=== PATIENT | female | born 1950 | race Caucasian/White ===

== ENCOUNTER → 2018-04-25 | Outpatient (CLI) | payer MEDICARE, OTHER ==
--- NOTE | 2018-04-25 16:21 | CARD ---
MR#: [id number] Date of Study: 04/25/2018 Ordering Physician: CORDELIA BRANDT, Referring Physician: CORDELIA BRANDT Tech: Florinda Clark RDCS APPROVED REPORT EXAM: Two-dimensional and M-mode echocardiogram with Doppler and color Doppler. Other Information Quality : Technically LimitedHR: 79bpm Rhythm : NSRTechnically limited study due to body habitus. INDICATION CAD 2D DIMENSIONS RVDd2.9 (2.9-3.5cm)Left Atrium(2D)3.3 (1.6-4.0cm) IVSd1.0 (0.7-1.1cm)Aortic Root(2D)3.2 (2.0-3.7cm) LVDd5.0 (3.9-5.9cm)LVOT Diameter2.2 (1.8-2.4cm) PWd0.9 (0.7-1.1cm)LVDs3.2 (2.5-4.0cm) FS (%) 35.6 %SV76.5 ml LVEF(%)60.0 (>50%) M-Mode DIMENSIONS Left Atrium(MM)3.82 (2.5-4.0cm)Aortic Root3.43 (2.2-3.7cm) Aortic Valve AoV Peak Cesar.126.0cm/sAoV VTI26.2cm AO Peak GR.6.3mmHgLVOT Peak Cesar.77.2cm/s LVOT VTI 19.39cmAO Mean GR.3mmHg DAVID (VMAX)2.49nu6WSC (VTI)2.77cm2 Mitral Valve MV E Gnuvvuwp36.2cm/sMV DECEL [id number] MV A Fdshbvgi07.7cm/sE/A Ratio0.7 MV A [id number] Pulmonary Valve PV Peak Angymeef25.7cm/sPV Peak Grad.3mmHg Tricuspid Valve TR P. Ppbmyqjb986sc/sRAP OXNPXKWW4gpOs TR Peak Gr.02xsZySPXR20yhGx LEFT VENTRICLE The left ventricle is normal size. There is normal left ventricular wall thickness. Basal inferior an d inferoseptal wall hypokinesis. The Ejection Fraction is 55%. Transmitral Doppler flow pattern is Gr jean I-abnormal relaxation pattern. RIGHT VENTRICLE The right ventricle is normal size. There is normal right ventricular wall thickness. The right ventr icular systolic function is normal. ATRIA The left atrium size is normal. The right atrium size is normal. The interatrial septum is intact wit h no evidence for an atrial septal defect or patent foramen ovale as noted on 2-D or Doppler imaging. AORTIC VALVE The aortic valve is normal in structure and function. The aortic valve is trileaflet. Doppler and Col or Flow revealed no significant aortic regurgitation. There is no significant aortic valvular stenosi s. MITRAL VALVE The mitral valve is normal in structure and function. There is no evidence of mitral valve prolapse. There is no mitral valve stenosis. Doppler and Color-flow revealed trace mitral regurgitation. TRICUSPID VALVE The tricuspid valve is normal in structure and function. Doppler and Color Flow revealed trace tricus pid regurgitation. The PA pressure was estimated at 20 mmHg. There is no tricuspid valve prolapse or vegetation. There is no tricuspid valve stenosis. PULMONIC VALVE Pulmonic valve not well visualized. GREAT VESSELS The aortic root is normal in size. The ascending aorta is normal in size. The IVC is normal in size a nd collapses >50% with inspiration. PERICARDIAL EFFUSION There is no evidence of significant pericardial effusion. Critical Notification Critical Value: No <Conclusion> Basal inferior and inferoseptal wall hypokinesis. The Ejection Fraction is 55%. Transmitral Doppler flow pattern is Grade I-abnormal relaxation pattern. Trace mitral regurgitation. Trace tricuspid regurgitation. The PA pressure was estimated at 20 mmHg. There is no evidence of significant pericardial effusion. Signed by : Cordelia Brandt, Electronically Approved : 04/25/2018 16:21:12
--- NOTE | 2018-04-28 16:08 | RAD ---
MR#: [id number] Date of Study: 04/25/2018 Ordering Physician: CORDELIA LEI, Referring Physician: CORDELIA LEI, Tech: Rossi Berkowitz RDMS, RVT, RTR APPROVED REPORT Patient Location: IN-PATIENT Indications AAA Grayscale images of the abdominal aorta reveals a aneurysm located approximately 3.4 cm from the supe rior mesenteric artery. The aneurysm measures approximately 4.8 cm in maximum mention in the mid abdo petey aorta. The iliac arteries do not appear to be involved. No significant velocity acceleration or deceleration is noted. Critical Notification Critical Value: No <Conclusion> 1. 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 Signed by : Alistair Kent, Electronically Approved : 04/28/2018 16:08:02
== END | disposition home or self-care (01) ==
LOC: ECHO 07:28
PROVIDERS: ATTEND Internal Medicine Cardiovascular Disease
DX: I25.10 Atherosclerotic heart disease of native coronary artery without angina pectoris (principal); I71.4 Abdominal aortic aneurysm, without rupture; R00.8 Other abnormalities of heart beat
CPT/HCPCS: 76770; 93306

== ENCOUNTER → 2019-05-01 | Outpatient (CLI) | payer MEDICARE, OTHER ==
--- NOTE | 2019-05-01 15:16 | CARD ---
MR#: [id number] Date of Study: 05/01/2019 Ordering Physician: CORDELIA LEI, Referring Physician: CORDELIA LEI, Tech: Simona Andrade RDCS APPROVED REPORT EXAM: Two-dimensional and M-mode echocardiogram with Doppler and color Doppler. Other Information Quality : Fair INDICATION Cardiac Disease: CAD 2D DIMENSIONS Left Atrium(2D)2.9 (1.6-4.0cm)IVSd0.9 (0.7-1.1cm) Aortic Root(2D)2.6 (2.0-3.7cm)LVDd4.9 (3.9-5.9cm) LVOT Diameter2.0 (1.8-2.4cm)PWd0.9 (0.7-1.1cm) LVDs3.4 (2.5-4.0cm)FS (%) 30.6 % SV65.8 ml Aortic Valve AoV Peak Cesar.108.9cm/sAoV VTI17.8cm AO Peak GR.4.7mmHgLVOT Peak Cesar.116.6cm/s LVOT VTI 20.81cmAO Mean GR.2mmHg DAVID (VMAX)3.43em4FZS (VTI)3.68cm2 Mitral Valve MV E Quvbyumi57.9cm/sMV DECEL [id number] MV A Sqyvwwhx47.5cm/sE/A Ratio0.8 LEFT VENTRICLE The left ventricle is normal size. There is normal left ventricular wall thickness. The left ventricu lar systolic function is normal. The Ejection Fraction is 50-55%. There is normal LV segmental wall m otion. Transmitral Doppler flow pattern is Grade I-abnormal relaxation pattern. RIGHT VENTRICLE The right ventricle is normal size. The right ventricular systolic function is normal. ATRIA The left atrium size is normal. The right atrium size is normal. The interatrial septum is intact wit h no evidence for an atrial septal defect or patent foramen ovale as noted on 2-D or Doppler imaging. AORTIC VALVE The aortic valve is calcified but opens well. Doppler and Color Flow revealed no significant aortic r egurgitation. There is no significant aortic valvular stenosis. MITRAL VALVE The mitral valve is calcified but opens well. Mitral annular calcification is mild. There is no evide nce of mitral valve prolapse. There is no mitral valve stenosis. Doppler and Color Flow revealed trac e mitral valve regurgitation. TRICUSPID VALVE The tricuspid valve is normal in structure and function. Doppler and Color Flow revealed no tricuspid valve regurgitation noted. There is no tricuspid valve stenosis. PULMONIC VALVE The pulmonic valve is not well visualized. Doppler and Color Flow revealed no pulmonic valvular regur gitation. There is no pulmonic valvular stenosis. GREAT VESSELS The aortic root is normal in size. The ascending aorta is mildly dilated at 3.1. cm. The IVC is swathi l in size and collapses >50% with inspiration. PERICARDIAL EFFUSION There is no evidence of significant pericardial effusion. Critical Notification Critical Value: No <Conclusion> The left ventricle is normal size. The left ventricular systolic function is normal. The Ejection Fraction is 50-55%. Doppler and Color Flow revealed no significant aortic regurgitation. There is no significant aortic valvular stenosis. Doppler and Color Flow revealed trace mitral valve regurgitation. Doppler and Color Flow revealed no tricuspid valve regurgitation noted. The ascending aorta is mildly dilated at 3.1. cm. Signed by : Tadeo Bone MD Electronically Approved : 05/01/2019 15:16:22
== END | disposition home or self-care (01) ==
LOC: ECHO 12:46
PROVIDERS: ATTEND Internal Medicine Cardiovascular Disease
DX: I08.0 Rheumatic disorders of both mitral and aortic valves (principal); I25.10 Atherosclerotic heart disease of native coronary artery without angina pectoris
CPT/HCPCS: 93306

== ENCOUNTER → 2020-06-04 | Outpatient (CLI) | payer MEDICARE, OTHER ==
--- NOTE | 2020-06-04 10:16 | RAD ---
PQRS Compliance Statement: One or more of the following individualized dose reduction techniques were utilized for this examinat ion: 1. Automated exposure control 2. Adjustment of the mA and/or kV according to patient size 3. Use of iterative reconstruction technique CT LOW DOSE LUNG SCREEN Clinical Indication: Reason: HX OF TOBACCO USE. / Spl. Instructions: / History: Comparison: None. TECHNIQUE: Helical CT imaging of the chest is performed without IV contrast using low-dose technique. Findings: Thyroid is unremarkable. Subcentimeter bilateral axillary lymph nodes. There is no adenopathy in the chest. The great vessels are normal caliber. There is three-vessel coronary artery disease. 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 The cardiac size is normal, no pericardial effusion. There is no pleural abnormality. The central airways are patent. There is scarring or atelectasis in the medial right middle lobe. Mild scarring or discoid atelectasis in the medial right lower lobe. A noncalcified pulmonary nodule is not identified. There is cholelithiasis. There is a 2.1 cm lamellated gallstone. Small exophytic right renal cyst bill s not require follow-up. Thoracic spine alignment is maintained. IMPRESSION: 1. No noncalcified pulmonary nodules are identified. Continue annual screening with low-dose CT in 1 2 months. 2. Three-vessel coronary artery disease. 3. Cholelithiasis. 4. Lung RADS category 1. Electronically signed by: Jesus Manuel Lindquist MD (06/04/2020 10:13 AM) [id number]
--- NOTE | 2020-06-04 12:28 | RAD ---
PQRS Compliance Statement: One or more of the following individualized dose reduction techniques were utilized for this examinat ion: 1. Automated exposure control 2. Adjustment of the mA and/or kV according to patient size 3. Use of iterative reconstruction technique CT MAXILLOFACIAL WITHOUT CONTRAST Clinical Indication: Reason: SINUSITUS / Spl. Instructions: / History: Comparison: None. TECHNIQUE: Helical CT imaging of the facial bones is performed without IV contrast. Findings: There is no midline shift or mass effect in the visualized brain. The globes and orbits are intact. The paranasal sinuses are clear. Mastoid air cells are aerated. External auditory canals are patent. The bony nasal septum is mostly midline. The ostiomeatal complexes are patent. There is no acute facial bone fracture. The upper cervical spine alignment is maintained. The parotid and submandibular glands are symmetric. There is no upper cervical adenopathy. IMPRESSION: The ostiomeatal complexes and the paranasal sinuses are clear. Electronically signed by: Jesus Manuel Lindquist MD (06/04/2020 12:25 PM) [id number]
--- NOTE | 2020-06-07 22:56 | RAD ---
DATE: 06/04/2020 EXAM: DIGITAL SCREEN BILAT W/CAD HISTORY: Screening COMPARISON: 06/05/2018, 02/15/2017 This study was interpreted with the benefit of Computerized Aided Detection (CAD). Breast Density: FATTY The breast parenchyma is primarily fatty replaced. Breast parenchyma level density A. FINDINGS: No suspicious mass, architectural distortion, or calcifications. IMPRESSION: No evidence of malignancy. BI-RADS CATEGORY: 1 NEGATIVE RECOMMENDED FOLLOW-UP: 12M 12 MONTH FOLLOW-UP PQRS compliance statement: Patient information was entered into a reminder system with a target due date for the next mammogram. Mammography is a sensitive method for finding small breast cancers, but it does not detect them all and is not a substitute for careful clinical examination. A negative mammogram does not negate a clinically suspicious finding and should not result in delay in biopsying a clinically suspicious abnormality. "Our facility is accredited by the [employer] Mammography Program."
== END ==
LOC: CT 08:10
PROVIDERS: ATTEND Family Medicine
DX: Z12.2 Encounter for screening for malignant neoplasm of respiratory organs (principal); Z12.31 Encounter for screening mammogram for malignant neoplasm of breast; J32.9 Chronic sinusitis, unspecified; K80.20 Calculus of gallbladder without cholecystitis without obstruction; I25.10 Atherosclerotic heart disease of native coronary artery without angina pectoris; N28.1 Cyst of kidney, acquired; Z87.891 Personal history of nicotine dependence
CPT/HCPCS: 70486; 71271; 77067